=== PATIENT | female | born 1950 | race Caucasian/White ===

== ENCOUNTER 2018-03-06 07:24 | Emergency (ER) | payer OTHER ==
[2018-03-06 08:24] LABS: Absolute Lymphocytes (CBC) 2.9 K/uL (0.7-4.9); Absolute Monocytes 0.7 K/uL (0.1-1.3); Absolute Neutrophil 5.6 K/uL (1.8-8.0); Basophils % 0.2 % (0-1.3); Eosinophils % 1.1 % (0-4.4); Hematocrit 36.8 % (36.0-45.0); Lymphocytes % 31.1 % (15.3-44.8); MCH 31.4 pg (27.0-35.0); MCV 92.9 fL (80-100); MPV 8.7 fL (7.6-11.3); Monocytes % 7.3 % (3.3-12.3); RBC Red Blood Cell Count 3.96 M/uL (3.86-4.86)
[2018-03-06 08:32] LABS: Protime INR 1.03
[2018-03-06 08:51] LABS: ALT/SGPT 22 U/L (12-78); AST/SGOT 18 U/L (15-37); Albumin 3.2 g/dL (3.4-5.0); Alkaline Phosphatase 99 U/L (45-117); BUN Blood Urea Nitrogen 17 mg/dL (7-18); Bicarbonate 29 mmol/L (21-32); Bilirubin Direct < 0.1 mg/dL (0-0.2); Bilirubin Total 0.3 mg/dL (0.2-1.0); Glucose Level 193 mg/dL (74-106); Magnesium 2.1 mg/dL (1.8-2.4); NT PRO-BNP 18 pg/mL (<125); Potassium 3.8 mmol/L (3.5-5.1); Protein, Total 7.3 g/dL (6.4-8.2); Sodium Level 141 mmol/L (136-145)
--- NOTE | 2018-03-06 09:12 | RAD REPORT ---
EXAM DESCRIPTION: MRI - Brain Wo Cont - 03/06/2018 8:52 am CLINICAL HISTORY: Weakness;Dizziness Drowsiness, history of CVA COMPARISON: Head Brain Wo Cont dated 10/24/2016; MRA Head Wo Cont dated 08/05/2016; Brain Wo Cont date d 06/21/2016; Brain Wo Cont dated 11/26/2015; Ct Stroke Brain Wo Cont dated 11/26/2015 TECHNIQUE: Multi-sequence, multiplanar MR imaging of the brain was performed without contrast. FINDINGS: No intracranial hemorrhage, hydrocephalus or extra-axial fluid collections.Areas of T2/FLA IR hyperintensity in the subcortical periventricular white matter appears unchanged and likely relate d to chronic microvascular ischemia. No edema or shift of midline structures. No findings to suspect brain mass. DWI is negative for acute CVA. Midline structures are normally formed. Mastoid air cells and paranasal sinuses are clear. IMPRESSION: Negative for acute CVA or other acute intracranial abnormality.
--- NOTE | 2018-03-06 09:14 | RAD REPORT ---
EXAM DESCRIPTION: RAD - Chest Single View - 03/06/2018 9:04 am CLINICAL HISTORY: MALAISE Chest pain. COMPARISON: Chest Single View dated 11/26/2015; CHEST PA AND LAT 2 VIEW dated 10/19/2012; CHEST PA AND L AT 2 VIEW dated 10/11/2005 FINDINGS: Portable technique limits examination quality. The lungs are grossly clear. The heart is normal in size. No displaced fractures. IMPRESSION: No acute intrathoracic process suspected.
--- NOTE | 2018-03-06 09:21 | ER ---
Nurse's Notes [facility] Name: Laney Espitia Age: 68 yrs Sex: Female : 1950 Arrival Date: 03/06/2018 Time: 07:28 Bed 17 Private MD: Halina Estevez Diagnosis: Vertiginous syndromes in diseases classified elsewhere Presentation: 03/06 07:29 Presenting complaint: Patient states: maynor been dizzy for 4 days now, i cant walk right and i always stay in bed almost all day because i feel tired; denies nausea and vomiting, reports heart burn; denies diarrhea; hx of [place] and CVA; denies headache;. Transition of care: patient was not received from another setting of care. Onset of symptoms was March 02, 2018. Risk Assessment: Do you want to hurt yourself or someone else? Patient reports no desire to harm self or others. Initial Sepsis Screen: Does the patient meet any 2 criteria? No. Patient's initial sepsis screen is negative. Does the patient have a suspected source of infection? No. Patient's initial sepsis screen is negative. Care prior to arrival: None. 07:29 Method Of Arrival: Ambulatory 07:29 Acuity: PIPPA 3 hj Triage Assessment: 07:34 General: Appears in no apparent distress. uncomfortable, Behavior is calm, cooperative, hj appropriate for age. Pain: Denies pain. Historical: - Allergies: 07:33 No Known Allergies; hj - Home Meds: 07:33 Metoprolol Tartrate Oral [Active]; Plavix 75 mg Oral tab 1 tab once daily [Active]; hj Simvastatin Oral [Active]; Cymbalta oral oral [Active]; 07:34 thyroid med [Active]; - PMHx: 07:33 Myocardial infarction; 07:34 Hypothyroidism; - PSHx: 07:33 Heart stents; ; hj - Immunization history:: Adult Immunizations up to date. - Social history:: Smoking status: Patient/guardian denies using tobacco, Patient/guardian denies using alcohol. - Ebola Screening: : Patient negative for fever greater than or equal to 101.5 degrees Fahrenheit, and additional compatible Ebola Virus Disease symptoms Patient denies exposure to infectious person Patient denies travel to an Ebola-affected area in the 21 days before illness onset. Screenin:35 Abuse screen: Denies threats or abuse. Denies injuries from another. Nutritional hj screening: No deficits noted. Tuberculosis screening: No symptoms or risk factors identified. Fall Risk None identified. Assessment: 07:50 General: Appears uncomfortable, Behavior is calm, cooperative. Pain: Denies pain. aa5 Neuro: Level of Consciousness is awake, alert, obeys commands, Oriented to person, place, time, situation, [employer] are equal bilaterally Moves all extremities. Speech is normal, Facial symmetry appears normal, Pupils are PERRLA, Reports generalized weakness and dizziness x 4 days. Pt states "I've had some tingling to my arms when I sleep" . Cardiovascular: Denies chest pain, nausea, shortness of breath, Heart tones S1 S2 present Rhythm is sinus rhythm. Respiratory: Airway is patent Respiratory effort is even, unlabored, Respiratory pattern is regular, symmetrical, Breath sounds are clear bilaterally. GI: Abdomen is obese, Bowel sounds present X 4 quads. Abd is soft and non tender X 4 quads. Reports intermittent heart burn x 2-3 days ago. Pt currently denies heart burn Patient currently denies diarrhea, nausea, vomiting. : No signs and/or symptoms were reported regarding the genitourinary system. EENT: No signs and/or symptoms were reported regarding the EENT system. Derm: Skin is pink, warm \\T\\ dry. Musculoskeletal: Range of motion: intact in all extremities. 08:20 Reassessment: Pt taken to MRI via wheelchair . aa5 09:10 Reassessment: Patient and/or family updated on plan of care and expected duration. Pain aa5 level reassessed. Patient is alert, oriented x 3, equal unlabored respirations, skin warm/dry/pink. Patient denies pain at this time. Pt back from MRI. 09:40 Reassessment: Patient is alert, oriented x 3, equal unlabored respirations, skin aa5 warm/dry/pink. Vital Signs: 07:35 BP 125 / 52; Pulse 94; Resp 18; Temp 98.4(O); Pulse Ox 99% on R/A; Weight 88.45 kg; hj Height 5 ft. 1 in. (154.94 cm); Pain 0/10; 09:15 BP 147 / 83; Pulse 87; Resp 18 S; Pulse Ox 100% on R/A; Pain 0/10; aa5 07:35 Body Mass Index 36.84 (88.45 kg, 154.94 cm) hj NIH Stroke Scale Scores: 09:17 NIHSS Score: 0 ED Course: 07:28 Patient arrived in ED. mr 07:28 Halina Estevez MD is Private Physician. mr 07:32 Triage completed. hj 07:35 Arm band placed on left wrist. hj 07:35 Patient has correct armband on for positive identification. Placed in gown. Bed in low hj position. Call light in reach. Side rails up X 1. 07:38 Mikhail Thayer MD is Attending Physician. gs 07:40 Loulou Pham, RIA is Primary Nurse. aa5 08:00 quality assurance monitor on. Pulse ox on. NIBP on. aa5 08:00 Initial lab(s) drawn, by me, sent to lab. Inserted saline lock: 20 gauge in left aa5 antecubital area, using aseptic technique. Blood collected. 08:35 Patient moved to MRI via wheelchair. kw1 08:41 Radiology exam delayed due to pt is in MRI. mh1 08:41 EKG done, by instrumentation tech. reviewed by Mikhail Thayer MD. at1 08:42 MRI - Brain Wo Cont In Process Unspecified. EDMS 08:59 Patient moved to radiology via wheelchair. mh1 09:02 X-ray completed. Patient tolerated procedure well. Patient moved back from radiology. mh1 09:02 XRAY Chest (1 view) In Process Unspecified. EDMS 09:20 Jules Alfonso MD is Referral Physician. gs 09:40 No provider procedures requiring assistance completed. IV discontinued, intact, aa5 bleeding controlled, No redness/swelling at site. Pressure dressing applied. Administered Medications: No medications were administered Outcome: 09:20 Discharge ordered by . gs 09:40 Discharged to home ambulatory. aa5 09:40 Condition: stable 09:40 Discharge instructions given to patient, Instructed on discharge instructions, follow up and referral plans. medication usage, Demonstrated understanding of instructions, follow-up care, medications, Prescriptions given X 1. 09:41 Patient left the ED. aa5 NIH Stroke Scale - NIH Stroke Score Date: 03/06/2018 Time: :17 Total Score = 0 1a. Level of Consciousness (LOC) - 0(Alert) 1b. Level of Consciousness (LOC) (Year \\T\\ Age) - 0(Both) 1c. LOC Commands (Open \\T\\ Closes Eyes/Concession Worker) - 0(Both) 2. Best Gaze (Lateral Gaze Paresis) - 0(Normal) 3. Visual Field Loss - 0(No visual loss) 4. Facial Palsy - 0(Normal) 5a. Left Arm: Motor (10-second hold) - 0(No drift) 5b. Right Arm: Motor (10-second hold) - 0(No drift) 6a. Left Leg: Motor (5-second hold - always test supine) - 0(No drift) 6b. Right Leg: Motor (5-second hold - always test supine) - 0(No drift) 7. Limb Ataxia (finger/nose \\T\\ heel/ricketts - test with eyes open) - 0(Absent) 8. Sensory Loss (pinprick arms/legs/face) - 0(Normal) 9. Best Language: Aphasia (description/naming/reading) - 0(No aphasia) 10. Dysarthria (speech clarity - read or repeat words) - 0(Normal) 11. Extinction and Inattention (visual/tactile/auditory/spatial/personal) - 0(No abnormality) Initials: Signatures: Dispatcher [employer] [facility] PeñaAry john mr UnderwoodElizabeth mh1 Loulou Pham, RN RN aa5 Tianna yancey, package drier EKG Tat1 Gareth Shields RN RN hj Starr, Gregory, MD MD gs Wilhelm, Kimberly kw1 Corrections: (The following items were deleted from the chart) 07:37 07:29 Presenting complaint: Patient states: maynor been dizzy for 3 days now, i hj cant walk right and i always stay in bed almost all day because i fell tired; denies nausea and vomiting, reports heart burn; denies diarrhea; hx of [place] and CVA; denies headache; 07:37 07:35 Pulse 94bpm; Resp 18bpm; Pulse Ox 99% RA; Temp 98.4F Oral; 88.45 kg; hj Height 5 ft. 1 in.; BMI: 36.8; Pain 0/10; hj
--- NOTE | 2018-03-06 09:21 | EDPHYS ---
Physician Documentation [facility] Name: Laney Espitia Age: 68 yrs Sex: Female : 1950 Arrival Date: 03/06/2018 Time: 07:28 Bed 17 Private MD: Halina Estevez ED Physician Mikhial Thayer HPI: 03/06 09:17 This 68 yrs old Female presents to ER via Ambulatory with complaints of gs Dizziness, Weakness. 09:17 The patient presents with dizziness, feeling off balance, a sense of confusion. Onset: gs The symptoms/episode began/occurred 3 day(s) ago. Context: occurred at home. Modifying factors: The symptoms are alleviated by nothing, the symptoms are aggravated by movement of head, standing up. Associated signs and symptoms: Pertinent positives: Pertinent negatives: abdominal pain, chest pain, shortness of breath. Severity of symptoms: At their worst the symptoms were moderate in the emergency department the symptoms are unchanged. The patient has experienced similar episodes in the past, a few times. Historical: - Allergies: 07:33 No Known Allergies; hj - Home Meds: 07:33 Metoprolol Tartrate Oral [Active]; Plavix 75 mg Oral tab 1 tab once daily [Active]; hj Simvastatin Oral [Active]; Cymbalta oral oral [Active]; 07:34 thyroid med [Active]; hj - PMHx: 07:33 Myocardial infarction; hj 07:34 Hypothyroidism; hj - PSHx: 07:33 Heart stents; ; hj - Immunization history:: Adult Immunizations up to date. - Social history:: Smoking status: Patient/guardian denies using tobacco, Patient/guardian denies using alcohol. - Ebola Screening: : Patient negative for fever greater than or equal to 101.5 degrees Fahrenheit, and additional compatible Ebola Virus Disease symptoms Patient denies exposure to infectious person Patient denies travel to an Ebola-affected area in the 21 days before illness onset. ROS: 09:17 All other systems are negative. gs Exam: 09:17 Head/Face: Normocephalic, atraumatic. Eyes: Pupils equal round and reactive to light, gs extra-ocular motions intact. Lids and lashes normal. Conjunctiva and sclera are non-icteric and not injected. Cornea within normal limits. Periorbital areas with no swelling, redness, or edema. ENT: Nares patent. No nasal discharge, no septal abnormalities noted. Tympanic membranes are normal and external auditory canals are clear. Oropharynx with no redness, swelling, or masses, exudates, or evidence of obstruction, uvula midline. Mucous membranes moist. Neck: Trachea midline, no thyromegaly or masses palpated, and no cervical lymphadenopathy. Supple, full range of motion without nuchal rigidity, or vertebral point tenderness. No Meningismus. Chest/axilla: Normal chest wall appearance and motion. Nontender with no deformity. No lesions are appreciated. Cardiovascular: Regular rate and rhythm with a normal S1 and S2. No gallops, murmurs, or rubs. Normal PMI, no JVD. No pulse deficits. Respiratory: Lungs have equal breath sounds bilaterally, clear to auscultation and percussion. No rales, rhonchi or wheezes noted. No increased work of breathing, no retractions or nasal flaring. Abdomen/GI: Soft, non-tender, with normal bowel sounds. No distension or tympany. No guarding or rebound. No evidence of tenderness throughout. Back: No spinal tenderness. No costovertebral tenderness. Full range of motion. Skin: Warm, dry with normal turgor. Normal color with no rashes, no lesions, and no evidence of cellulitis. MS/ Extremity: Pulses equal, no cyanosis. Neurovascular intact. Full, normal range of motion. 09:17 Constitutional: The patient appears alert, awake. 09:17 Neuro: Orientation: is normal, Mentation: is normal, Memory: is normal, Cranial nerves: CN II- XII are normal as tested, Cerebellar function: normal finger to nose testing, little slow but do deviation, Motor: moves all fours, strength is normal, Sensation: is normal. 09:31 ECG was reviewed by the Attending Physician. Vital Signs: 07:35 BP 125 / 52; Pulse 94; Resp 18; Temp 98.4(O); Pulse Ox 99% on R/A; Weight 88.45 kg; hj Height 5 ft. 1 in. (154.94 cm); Pain 0/10; 09:15 BP 147 / 83; Pulse 87; Resp 18 S; Pulse Ox 100% on R/A; Pain 0/10; aa5 07:35 Body Mass Index 36.84 (88.45 kg, 154.94 cm) hj NIH Stroke Scale Scores: 09:17 NIHSS Score: 0 gs MDM: 07:51 Patient medically screened. 09:17 Differential diagnosis: CVA, TIA, vertigo. Data reviewed: vital signs, nurses notes. Response to treatment: the patient's symptoms have mildly improved after treatment, and as a result, I will discharge patient. 03/06 07:53 Order name: Basic Metabolic Panel; Complete Time: 09:13 03/06 07:53 Order name: CBC with Diff; Complete Time: 09:13 03/06 07:53 Order name: LFT's; Complete Time: 09:13 03/06 07:53 Order name: Magnesium; Complete Time: 09:13 03/06 07:53 Order name: NT PRO-BNP; Complete Time: 09:13 03/06 07:53 Order name: PT-INR; Complete Time: 09:13 03/06 07:53 Order name: Troponin (emerg Dept Use Only); Complete Time: 09: 03/06 07:53 Order name: XRAY Chest (1 view); Complete Time: 09:16 03/06 07:53 Order name: EKG; Complete Time: 07:53 03/06 07:53 Order name: Cardiac monitoring; Complete Time: 08:08 03/06 07:53 Order name: EKG - Nurse/Tech; Complete Time: 08:08 03/06 07:53 Order name: IV Saline Lock; Complete Time: 08:08 03/06 07:53 Order name: Labs collected and sent; Complete Time: 08:08 03/06 07:53 Order name: MRI - Brain Wo Cont; Complete Time: 09:16 03/06 07:53 Order name: O2 Per Protocol; Complete Time: 08:08 03/06 07:53 Order name: O2 Sat Monitoring; Complete Time: 08:08 EC:31 Rate is 94 beats/min. Rhythm is regular. MD interval is normal. QRS interval is normal. gs Q waves are Old. Clinical impression: Abnormal EKG without significant change. Interpreted by me. Administered Medications: No medications were administered Disposition: 03/06/18 09:20 Discharged to Home. Impression: Vertiginous syndromes in diseases classified elsewhere. - Condition is Stable. - Discharge Instructions: Benign Positional Vertigo. - Prescriptions for Valium 5 mg Oral Tablet - take 1 tablet by ORAL route every 12 hours As needed; 10 tablet. - Medication Reconciliation Form, Thank You Letter, Antibiotic Education, Prescription Opioid Use form. - Follow up: Jules Alfonso MD; When: 2 - 3 days; Reason: Re-evaluation by your physician. NIH Stroke Scale - NIH Stroke Score Date: 03/06/2018 Time: 09:17 Total Score = 0 1a. Level of Consciousness (LOC) - 0(Alert) 1b. Level of Consciousness (LOC) (Year \T\ Age) - 0(Both) 1c. LOC Commands (Open \T\ Closes Eyes/Barge Engineer) - 0(Both) 2. Best Gaze (Lateral Gaze Paresis) - 0(Normal) 3. Visual Field Loss - 0(No visual loss) 4. Facial Palsy - 0(Normal) 5a. Left Arm: Motor (10-second hold) - 0(No drift) 5b. Right Arm: Motor (10-second hold) - 0(No drift) 6a. Left Leg: Motor (5-second hold - always test supine) - 0(No drift) 6b. Right Leg: Motor (5-second hold - always test supine) - 0(No drift) 7. Limb Ataxia (finger/nose \T\ heel/ricketts - test with eyes open) - 0(Absent) 8. Sensory Loss (pinprick arms/legs/face) - 0(Normal) 9. Best Language: Aphasia (description/naming/reading) - 0(No aphasia) 10. Dysarthria (speech clarity - read or repeat words) - 0(Normal) 11. Extinction and Inattention (visual/tactile/auditory/spatial/personal) - 0(No abnormality) Initials: Signatures: Dispatcher [employer] EDMS Loulou Pham RN RN aa5 Gareth Shields RN RN hj Starr, Gregory, MD MD gs Corrections: (The following items were deleted from the chart) 09:40 07:53 Urine Dipstick-Ancillary ordered. aa5 09:41 09:20 03/06/2018 09:20 Discharged to Home. Impression: Vertiginous syndromes in aa5 diseases classified elsewhere. Condition is Stable. Forms are Medication Reconciliation Form, Thank You Letter, Antibiotic Education, Prescription Opioid Use. Follow up: Jules Alfonso; When: 2 - 3 days; Reason: Re-evaluation by your physician. gs
[2018-03-06 09:49] VITALS: TEMP 98.4
[2018-03-06 09:50] VITALS: BP 147/83; O2SAT 100
--- NOTE | 2018-03-06 14:52 | EKG ---
Test Date: 2018-03-06 Test Time: 08:04:37 Reflesher: TISHA MEASUREMENT RESULTS: Intervals: Rate: 94 MO: 166 QRSD: 74 QT: 372 QTc: 465 [place]: P: 67 MO: 166 QRS: 68 T: 77 INTERPRETIVE STATEMENTS: Normal sinus rhythm Low voltage QRS Septal infarct, age undetermined Abnormal ECG Compared to ECG 11/27/2015 07:05:21 Myocardial infarct finding now present Electronically Signed On 03-06-18 14:50:21 CDT by Johann Altamirano
== END 2018-03-06 09:41 | disposition home or self-care (01) ==
LOC: ER 07:24
DX: H82.9 Vertiginous syndromes in diseases classified elsewhere, unspecified ear (principal); E03.9 Hypothyroidism, unspecified; I25.2 Old myocardial infarction; Z95.818 Presence of other cardiac implants and grafts; Z79.01 Long term (current) use of anticoagulants
CPT/HCPCS: 36415; 70551; 71045; 80048; 80076; 83735; 83880; 84484; 85025; 85610; 93005; 99285

== ENCOUNTER 2018-03-20 09:56 | Emergency (ER) | payer OTHER ==
--- NOTE | 2018-03-20 10:32 | EDPHYS ---
Physician Documentation [facility] Name: Laney Espitia Age: 68 yrs Sex: Female : 1950 Arrival Date: 03/20/2018 Time: 09:58 Bed 13 Private MD: ED Physician Tarik Mayer HPI: 03/20 10:27 This 68 yrs old Female presents to ER via Wheelchair with complaints of Fall aundrea Injury. 10:27 Details of fall: The patient fell from an upright position, while walking. Onset: The aundrea symptoms/episode began/occurred just prior to arrival. Associated injuries: The patient sustained right arm, right leg and left leg. Severity of symptoms: At their worst the symptoms were mild, in the emergency department the symptoms are unchanged. The patient has not experienced similar symptoms in the past. Historical: - Allergies: 10:06 NKA; iw - Home Meds: 10:06 Cymbalta Oral [Active]; Metoprolol Tartrate Oral [Active]; Plavix 75 mg Oral tab 1 tab iw once daily [Active]; Simvastatin Oral [Active]; Thyroid Med [Active]; - PMHx: 10:06 Hypothyroidism; Myocardial infarction; High Cholesterol; Hypertension; Depression; iw - PSHx: 10:06 Heart stents; ; iw - Immunization history:: Adult Immunizations Last tetanus immunization: > 10 years ago. - Social history:: Smoking status: Patient/guardian denies using tobacco. - Ebola Screening: : Patient negative for fever greater than or equal to 101.5 degrees Fahrenheit, and additional compatible Ebola Virus Disease symptoms Patient denies exposure to infectious person Patient denies travel to an Ebola-affected area in the 21 days before illness onset No symptoms or risks identified at this time. - Family history:: not pertinent. ROS: 10:27 Constitutional: Negative for fever, chills, and weight loss, Eyes: Negative for injury, aundrea pain, redness, and discharge, ENT: Negative for injury, pain, and discharge, Neck: Negative for injury, pain, and swelling, Cardiovascular: Negative for chest pain, palpitations, and edema, Respiratory: Negative for shortness of breath, cough, wheezing, and pleuritic chest pain, Abdomen/GI: Negative for abdominal pain, nausea, vomiting, diarrhea, and constipation, Back: Negative for injury and pain, : Negative for injury, bleeding, discharge, and swelling, Skin: Negative for injury, rash, and discoloration, Neuro: Negative for headache, weakness, numbness, tingling, and seizure, Psych: Negative for depression, anxiety, suicide ideation, homicidal ideation, and hallucinations, Allergy/Immunology: Negative for hives, rash, and allergies, Endocrine: Negative for neck swelling, polydipsia, polyuria, polyphagia, and marked weight changes. 10:27 MS/extremity: Positive for injury or acute deformity, decreased range of motion, pain, of the right arm, right leg and left leg. Exam: 10:27 Constitutional: This is a well developed, well nourished patient who is awake, alert, aundrea and in no acute distress. Head/Face: Normocephalic, atraumatic. Eyes: Pupils equal round and reactive to light, extra-ocular motions intact. Lids and lashes normal. Conjunctiva and sclera are non-icteric and not injected. Cornea within normal limits. Periorbital areas with no swelling, redness, or edema. ENT: Nares patent. No nasal discharge, no septal abnormalities noted. Tympanic membranes are normal and external auditory canals are clear. Oropharynx with no redness, swelling, or masses, exudates, or evidence of obstruction, uvula midline. Mucous membranes moist. Neck: Trachea midline, no thyromegaly or masses palpated, and no cervical lymphadenopathy. Supple, full range of motion without nuchal rigidity, or vertebral point tenderness. No Meningismus. Chest/axilla: Normal chest wall appearance and motion. Nontender with no deformity. No lesions are appreciated. Cardiovascular: Regular rate and rhythm with a normal S1 and S2. No gallops, murmurs, or rubs. Normal PMI, no JVD. No pulse deficits. Respiratory: Lungs have equal breath sounds bilaterally, clear to auscultation and percussion. No rales, rhonchi or wheezes noted. No increased work of breathing, no retractions or nasal flaring. Abdomen/GI: Soft, non-tender, with normal bowel sounds. No distension or tympany. No guarding or rebound. No evidence of tenderness throughout. Back: No spinal tenderness. No costovertebral tenderness. Full range of motion. Female : Normal external genitalia. Skin: Warm, dry with normal turgor. Normal color with no rashes, no lesions, and no evidence of cellulitis. Neuro: Awake and alert, GCS 15, oriented to person, place, time, and situation. Cranial nerves II-XII grossly intact. Motor strength 5/5 in all extremities. Sensory grossly intact. Cerebellar exam normal. Normal gait. Psych: Awake, alert, with orientation to person, place and time. Behavior, mood, and affect are within normal limits. 10:27 Musculoskeletal/extremity: ROM: full active range of motion, full passive range of motion, in all extremities, Circulation is intact in all extremities. Sensation intact. Compartment Syndrome exam of affected extremity: is normal. DVT Exam: negative Homans' sign noted on exam, no appreciated bluish discoloration, no erythema, no increased warmth, pain, swelling, tenderness. Vital Signs: 10:04 BP 187 / 64; Pulse 91; Resp 16; Pulse Ox 99% on R/A; Height 5 ft. 0 in. (152.40 cm); iw Pain 2/10; MDM: 10:05 Patient medically screened. [facility] 10:29 Data reviewed: vital signs, nurses notes, radiologic studies. 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 Lot #: [id number]. } Route: IM; Site: left deltoid; 10:39 Follow up: Response: No adverse reaction Disposition: 03/20/18 10:32 Discharged to Home. Impression: Fall due to bumping against object, Pain in right knee, Pain in left knee, Abrasion of right elbow. - Condition is Stable. - Discharge Instructions: Abrasion, Musculoskeletal Pain, Knee Pain, Abrasion, [id number], Knee Pain, [id number], Joint Pain, [id number]. - Prescriptions for Tylenol- Codeine #3 300-30 mg Oral Tablet - take 2 tablets by ORAL route every 6 hours As needed; 26 tablet. - Medication Reconciliation Form, Thank You Letter, Antibiotic Education, Prescription Opioid Use form. - Follow up: Private Physician; When: 2 - 3 days; Reason: Recheck today's complaints, Continuance of care, Re-evaluation by your physician. Follow up: Choco Sena MD; When: 2 - 3 days; Reason: Recheck today's complaints, Re-evaluation by your physician. - Problem is new. - Symptoms have improved. Signatures: Dispatcher [employer] EDMS Tarik Mayer MD MD cha Williams, Irene, RN RN Gareth Shields RN RN Corrections: (The following items were deleted from the chart) 11:34 10:32 03/20/2018 10:32 Discharged to Home. Impression: Fall due to bumping against hj object; Pain in right knee; Pain in left knee; Abrasion of right elbow. Condition is Stable. Forms are Medication Reconciliation Form, Thank You Letter, Antibiotic Education, Prescription Opioid Use. Follow up: Private Physician; When: 2 - 3 days; Reason: Recheck today's complaints, Continuance of care, Re-evaluation by your physician. Follow up: Choco Sena; When: 2 - 3 days; Reason: Recheck today's complaints, Re-evaluation by your physician. Problem is new. Symptoms have improved. aundrea
--- NOTE | 2018-03-20 10:32 | ER ---
Nurse's Notes [facility] Name: Laney Espitia Age: 68 yrs Sex: Female : 1950 Arrival Date: 03/20/2018 Time: 09:58 Bed 13 Private MD: Diagnosis: Fall due to bumping against object;Pain in right knee;Pain in left knee;Abrasion of right elbow Presentation: 03/20 10:00 Presenting complaint: Patient states: pt tripped on curb outside of front ER walkway, iw pt fell forward, did not hit head, abrasion to right elbow, c/o mild payne to jorge knees, no other injuries noted. Care prior to arrival: None. Mechanism of Injury: Fall from standing position. Trauma event details: Injury occurred in the [facility]. 10:00 Acuity: PIPPA 4 iw 10:00 Method Of Arrival: Wheelchair iw 10:08 Transition of care: patient was not received from another setting of care. Onset of hj symptoms was March 20, 2018. Risk Assessment: Do you want to hurt yourself or someone else? Patient reports no desire to harm self or others. Initial Sepsis Screen: Does the patient meet any 2 criteria? No. Patient's initial sepsis screen is negative. Does the patient have a suspected source of infection? No. Patient's initial sepsis screen is negative. Triage Assessment: 10:08 General: Appears in no apparent distress. uncomfortable, Behavior is calm, cooperative, hj appropriate for age. Pain: Complains of pain in elbow and bilateral knees. Trauma Activation: Not Applicable Physician: ED Physician; Name: ; Notified At: ; Arrived At: Physician: General Surgeon; Name: ; Notified At: ; Arrived At: Physician: Radiology; Name: ; Notified At: ; Arrived At: Physician: Respiratory; Name: ; Notified At: ; Arrived At: Physician: Lab; Name: ; Notified At: ; Arrived At: Historical: - Allergies: 10:06 NKA; iw - Home Meds: 10:06 Cymbalta Oral [Active]; Metoprolol Tartrate Oral [Active]; Plavix 75 mg Oral tab 1 tab iw once daily [Active]; Simvastatin Oral [Active]; Thyroid Med [Active]; - PMHx: 10:06 Hypothyroidism; Myocardial infarction; High Cholesterol; Hypertension; Depression; iw - PSHx: 10:06 Heart stents; ; iw - Immunization history:: Adult Immunizations Last tetanus immunization: > 10 years ago. - Social history:: Smoking status: Patient/guardian denies using tobacco. - Ebola Screening: : Patient negative for fever greater than or equal to 101.5 degrees Fahrenheit, and additional compatible Ebola Virus Disease symptoms Patient denies exposure to infectious person Patient denies travel to an Ebola-affected area in the 21 days before illness onset No symptoms or risks identified at this time. - Family history:: not pertinent. Screenin:08 Abuse screen: Denies threats or abuse. Denies injuries from another. Nutritional hj screening: No deficits noted. Tuberculosis screening: No symptoms or risk factors identified. Fall Risk Fall in past 12 months (25 points). Assessment: 10:11 General: Appears in no apparent distress. uncomfortable, Behavior is calm, cooperative, jb4 appropriate for age. Pain: Complains of pain in right elbow, right knee and left knee Pain does not radiate. Pain currently is 3 out of 10 on a pain scale. at worst was 3 out of 10 on a pain scale. Pain began 30 min ago. Is continuous. Neuro: Level of Consciousness is awake, alert, obeys commands, Oriented to person, place, time, situation, Computer Systems Design Analyst are equal bilaterally Moves all extremities. Cardiovascular: Heart tones S1 S3 present Patient's skin is warm and dry. Respiratory: Airway is patent Respiratory effort is even, unlabored, Respiratory pattern is regular, symmetrical, Breath sounds are clear bilaterally. GI: Bowel sounds present X 4 quads. Abd is soft and non tender X 4 quads. : No signs and/or symptoms were reported regarding the genitourinary system. EENT: No signs and/or symptoms were reported regarding the EENT system. Derm: Skin Abrasions to the right elbow, left and right knee. Skin is dry, Skin is normal, Skin temperature is warm. Musculoskeletal: Circulation, motion, and sensation intact. Range of motion: intact in all extremities. Injury Description: Abrasion sustained to right elbow, right knee and left knee. 10:50 Reassessment: Patient and/or family updated on plan of care and expected duration. Pain jb4 level reassessed. Patient is alert, oriented x 3, equal unlabored respirations, skin warm/dry/pink. waiting for X-ray before discharge. Patient states feeling better. Vital Signs: 10:04 BP 187 / 64; Pulse 91; Resp 16; Pulse Ox 99% on R/A; Height 5 ft. 0 in. (152.40 cm); iw Pain 2/10; ED Course: 09:58 Patient arrived in ED. tw2 10:03 Triage completed. iw 10:04 Arm band placed on. iw 10:05 Tarik Mayer MD is Attending Physician. aundrea 10:07 Gareth Shields, RN is Primary Nurse. hj 10:09 Patient has correct armband on for positive identification. Bed in low position. Call hj light in reach. Side rails up X 1. 10:31 Choco Sena MD is Referral Physician. aundrea 10:37 EKG done, by medical instrument technician. reviewed by Tarik Mayer MD. at1 11:33 No provider procedures requiring assistance completed. Patient did not have IV access hj during this emergency room visit. 11:38 X-ray completed. Portable x-ray completed in exam room. Patient tolerated procedure jb2 well. 11:39 Knee Left 3 View XRAY In Process Unspecified. 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 Lot #: [id number]. } Route: IM; Site: left deltoid; 10:39 Follow up: Response: No adverse reaction hj Outcome: 10:32 Discharge ordered by . aundrea 11:33 Discharged to home ambulatory. hj 11:33 Condition: stable 11:33 Discharge instructions given to patient, Instructed on discharge instructions, follow up and referral plans. Demonstrated understanding of instructions, follow-up care. 11:34 Patient left the ED. hj Signatures: Dispatcher [employer] EDMS Tarik Mayer MD MD cha Buechter, Jesse jb2 Sol Jha, Tianna Yoder RN, surface grinder EKG Tat1 Gareth Shields, RN Myriam Campbell RN RN tw2 Michael Ugalde RN RN jb4 Corrections: (The following items were deleted from the chart) 10:04 10:00 Presenting complaint: Patient states: tripped on curb outside of front ER iw walkway, pt fell forward, did not hit head, abrasion to right elbow, c/o mild payne to jorge knees, no other injuries noted iw
[2018-03-20] MEDS ORDERED: TETANUS & DIPHTHERIA TOX,ADULT 0.5 ML VIAL ONE (10:37)
[2018-03-20 11:37] VITALS: BP 187/64; O2SAT 99
--- NOTE | 2018-03-20 12:16 | RAD REPORT ---
EXAM DESCRIPTION: RAD - Knee Left 3 View - 03/20/2018 11:39 am CLINICAL HISTORY: PAIN COMPARISON: No comparisons FINDINGS: No fracture or dislocation is appreciated. Soft tissue swelling is seen anterior to the pa tella.
--- NOTE | 2018-03-20 14:47 | EKG ---
Test Date: 2018-03-20 Test Time: 10:26:41 Lead Accountant: TISHA MEASUREMENT RESULTS: Intervals: Rate: 86 TN: 176 QRSD: 82 QT: 386 QTc: 461 [place]: P: 65 TN: 176 QRS: 60 T: 71 INTERPRETIVE STATEMENTS: Normal sinus rhythm Low voltage QRS Septal infarct, age undetermined Abnormal ECG Compared to ECG 03/06/2018 08:04:37 No significant changes Electronically Signed On 03-20-18 14:45:07 CDT by Johann Altamirano
== END 2018-03-20 11:34 | disposition home or self-care (01) ==
LOC: ER 09:56
DX: S50.311A Abrasion of right elbow, initial encounter (principal); M25.562 Pain in left knee; M25.561 Pain in right knee; I10 Essential (primary) hypertension; E03.9 Hypothyroidism, unspecified; W18.00XA Striking against unspecified object with subsequent fall, initial encounter; Y93.01 Activity, walking, marching and hiking; Y92.9 Unspecified place or not applicable; Y99.9 Unspecified external cause status; Z23 Encounter for immunization
CPT/HCPCS: 90714; 93005; 99283

== ENCOUNTER 2020-06-17 10:26 | Emergency (ER) | payer OTHER ==
--- NOTE | 2020-06-17 12:18 | ER ---
Nurse's Notes [facility] Name: Laney Espitia Age: 70 yrs Sex: Female : 1950 Arrival Date: 06/17/2020 Time: : Bed 18 Private MD: Diagnosis: Urinary tract infection, site not specified;Acute upper respiratory infection, unspecified Presentation: 06/17 10:41 Chief complaint: Patient states: Fatigue, tiredness, cough, sore throat, fatigue, ll1 tiredness, no appetite for 1 week. Low grade fever one day. + diarrhea. Coronavirus screen: Client denies travel out of the [place] in the last 14 days. cough unrelated to allergies, diarrhea, fatigue, fever, sore throat, Client presents with at least one sign or symptom that may indicate coronavirus-19. Standard/surgical mask placed on the client. Ebola Screen: Patient denies travel to an Ebola-affected area in the 21 days before illness onset. Initial Sepsis Screen: Does the patient meet any 2 criteria? HR > 90 bpm. No. Patient's initial sepsis screen is negative. Does the patient have a suspected source of infection? Yes: Productive cough/pneumonia. Risk Assessment: Do you want to hurt yourself or someone else? Patient reports no desire to harm self or others. Onset of symptoms was June 10, 2020. 10:41 Method Of Arrival: Ambulatory ll1 10:41 Acuity: PIPPA 3 ll1 Historical: - Allergies: 10:41 NKA; ll1 - PMHx: 10:41 Depression; High Cholesterol; Hypertension; Hypothyroidism; Myocardial infarction; ll1 stroke; - PSHx: 10:41 Heart stents; ; ll1 - Immunization history:: Flu vaccine is not up to date. - Social history:: Smoking status: Patient denies any tobacco usage or history of. Screenin:40 Abuse screen: Denies threats or abuse. Denies injuries from another. Nutritional hb screening: No deficits noted. Tuberculosis screening: No symptoms or risk factors identified. Fall Risk None identified. Assessment: 10:45 General: Appears in no apparent distress. Behavior is calm, cooperative. Pain: Pain hb currently is 2 out of 10 on a pain scale. Neuro: Level of Consciousness is awake, alert, obeys commands, Oriented to person, place, time, situation. Cardiovascular: Capillary refill < 3 seconds Patient's skin is warm and dry. Respiratory: Respiratory effort is even, unlabored, Respiratory pattern is regular, symmetrical. GI: No signs and/or symptoms were reported involving the gastrointestinal system. : No signs and/or symptoms were reported regarding the genitourinary system. EENT: Reports sore throat. Derm: Skin is pink, warm \T\ dry. Musculoskeletal: No signs and/or symptoms reported regarding the musculoskeletal system. 11:40 Reassessment: Patient appears in no apparent distress at this time. Patient and/or hb family updated on plan of care and expected duration. Pain level reassessed. Patient is alert, oriented x 3, equal unlabored respirations, skin warm/dry/pink. Vital Signs: 10:41 BP 163 / 68; Pulse 108; Resp 18; Temp 98.8; Pulse Ox 100% ; Weight 108.86 kg; Pain 0/10;ll1 11:27 BP 140 / 72; Pulse 93; Resp 17; Pulse Ox 96% on R/A; hb ED Course: 10:28 Patient arrived in ED. ds1 10:36 Michelle Maddox FNP-C [facility]. kb 10:36 Lionel Wilson MD is Attending Physician. kb 10:40 Arm band placed on Patient placed in an exam room, on a stretcher. ll1 10:42 Sumaya Daniels, RN is Primary Nurse. hb 10:42 Triage completed. ll1 10:55 Strep Sent. dh3 10:55 Flu Sent. dh3 11:40 Patient has correct armband on for positive identification. Bed in low position. Call hb light in reach. 11:51 Urine collected: clean catch specimen, cloudy. dh3 12:42 Pt swabbed for COVID-19. jp3 12:46 No provider procedures requiring assistance completed. Patient did not have IV access hb during this emergency room visit. Administered Medications: 12:33 Drug: Augmentin 875 mg Route: PO; hb 12:46 Follow up: Response: No adverse reaction hb Outcome: 12:18 Discharge ordered by MD. kb 12:46 Discharged to home ambulatory. hb 12:46 Condition: stable 12:46 Discharge instructions given to patient, Instructed on discharge instructions, follow up and referral plans. medication usage, Demonstrated understanding of instructions, follow-up care, medications, Prescriptions given X 1. 12:47 Patient left the ED. Addendum: 06/18/2020 14:25 Addendum: COVID-19 Result: Negative result given to RN to notify pt. Attempted to h b contact pt regarding negative COVID-19 swab results. Left voice mail. Signatures: Michelle Maddox, DOROTHEA JEWELLP-Sobia Menjivar ds1 Sumaya Daniels RN RN Kourtney Magaña 3 Eder Mabry 3 Nata Corcoran RN RN ll1
--- NOTE | 2020-06-17 12:18 | EDPHYS ---
Physician Documentation [facility] Name: Laney Espitia Age: 70 yrs Sex: Female : 1950 Arrival Date: 06/17/2020 Time: : Bed 18 Private MD: ED Physician Lionel Wilson HPI: 06/17 12:46 This 70 yrs old Female presents to ER via Ambulatory with complaints of Sore kb Throat. 12:46 The patient or guardian reports cough, that is intermittent, described as moderate, kb with no sputum, flu symptoms, low-grade fever, myalgias. Onset: The symptoms/episode began/occurred last week. Severity of symptoms: At their worst the symptoms were moderate, in the emergency department the symptoms are unchanged. Modifying factors: The symptoms are alleviated by nothing, the symptoms are aggravated by nothing. Associated signs and symptoms: Pertinent positives: diarrhea, fever, rhinorrhea, sore throat, Pertinent negatives: chest pain, ear ache, nausea, vomiting. The patient has not experienced similar symptoms in the past. The patient has not recently seen a physician. Pt reports cough, malaise, fatigue, headache, body aches, sore throat, diarrhea for a week. States "I just came to get a COVID test because this has been lingering and I don't know how I'm supposed to feel if it was covid.". Historical: - Allergies: 10:41 NKA; ll1 - PMHx: 10:41 Depression; High Cholesterol; Hypertension; Hypothyroidism; Myocardial infarction; ll1 stroke; - PSHx: 10:41 Heart stents; ; ll1 - Immunization history:: Flu vaccine is not up to date. - Social history:: Smoking status: Patient denies any tobacco usage or history of. ROS: 12:45 Neck: Negative for injury, pain, and swelling, Cardiovascular: Negative for chest pain, kb palpitations, and edema, Back: Negative for injury and pain, MS/Extremity: Negative for injury and deformity, Skin: Negative for injury, rash, and discoloration. 12:45 Constitutional: Positive for body aches, fatigue, malaise. 12:45 ENT: Positive for rhinorrhea, sore throat. 12:45 Respiratory: Positive for cough, Negative for dyspnea on exertion, hemoptysis, orthopnea, pleurisy, shortness of breath, sputum production, wheezing. 12:45 Abdomen/GI: Positive for diarrhea, Negative for abdominal pain, nausea and vomiting. 12:45 Neuro: Positive for headache. Exam: 12:45 Constitutional: This is a well developed, well nourished patient who is awake, alert, kb and in no acute distress. Head/Face: Normocephalic, atraumatic. ENT: Nares patent. No nasal discharge, no septal abnormalities noted. Tympanic membranes are normal and external auditory canals are clear. Oropharynx with no redness, swelling, or masses, exudates, or evidence of obstruction, uvula midline. Mucous membranes moist. Neck: Trachea midline, no thyromegaly or masses palpated, and no cervical lymphadenopathy. Supple, full range of motion without nuchal rigidity, or vertebral point tenderness. No Meningismus. Chest/axilla: Normal chest wall appearance and motion. Nontender with no deformity. No lesions are appreciated. Cardiovascular: Regular rate and rhythm with a normal S1 and S2. No gallops, murmurs, or rubs. Normal PMI, no JVD. No pulse deficits. Respiratory: Lungs have equal breath sounds bilaterally, clear to auscultation and percussion. No rales, rhonchi or wheezes noted. No increased work of breathing, no retractions or nasal flaring. Abdomen/GI: Soft, non-tender, with normal bowel sounds. No distension or tympany. No guarding or rebound. No evidence of tenderness throughout. Skin: Warm, dry with normal turgor. Normal color with no rashes, no lesions, and no evidence of cellulitis. MS/ Extremity: Pulses equal, no cyanosis. Neurovascular intact. Full, normal range of motion. Neuro: Awake and alert, GCS 15, oriented to person, place, time, and situation. Cranial nerves II-XII grossly intact. Motor strength 5/5 in all extremities. Sensory grossly intact. Cerebellar exam normal. Normal gait. Vital Signs: 10:41 BP 163 / 68; Pulse 108; Resp 18; Temp 98.8; Pulse Ox 100% ; Weight 108.86 kg; Pain 0/10;ll1 11:27 BP 140 / 72; Pulse 93; Resp 17; Pulse Ox 96% on R/A; hb MDM: 10:37 Patient medically screened. kb 12:15 Data reviewed: vital signs, nurses notes. Data interpreted: Pulse oximetry: on room air kb is 96 %. Interpretation: normal. Counseling: I had a detailed discussion with the patient and/or guardian regarding: the historical points, exam findings, and any diagnostic results supporting the discharge/admit diagnosis, lab results, the need for outpatient follow up, a family practitioner, to return to the emergency department if symptoms worsen or persist or if there are any questions or concerns that arise at home. 06/17 10:46 Order name: Flu; Complete Time: 11:34 kb 06/17 10:46 Order name: Strep; Complete Time: 11:34 kb 06/17 11:32 Order name: Throat Culture EDWI 06/17 11:51 Order name: Urine Microscopic Only dh3 06/17 11:54 Order name: Urine Dipstick--Ancillary (enter results) bd 06/17 11:54 Order name: Urine Dipstick-Ancillary EDWI 06/17 11:35 Order name: Urine Dipstick-Ancillary (obtain specimen); Complete Time: 11:47 kb 06/17 12:17 Order name: COVID-19 kb Administered Medications: 12:33 Drug: Augmentin 875 mg Route: PO; 12:46 Follow up: Response: No adverse reaction Disposition: 15:35 Co-signature as Attending Physician, Lionel Wilson MD. ma2 Disposition: 06/17/20 12:18 Discharged to Home. Impression: Urinary tract infection, site not specified, Acute upper respiratory infection, unspecified. - Condition is Stable. - Discharge Instructions: Urinary Tract Infection, Adult, [id number], Upper Respiratory Infection, Adult, [id number], COVID-19. - Prescriptions for Augmentin 875- 125 mg Oral Tablet - take 1 tablet by ORAL route every 12 hours for 10 days; 20 tablet. - Medication Reconciliation Form, Thank You Letter, Antibiotic Education, Prescription Opioid Use form. - Follow up: Emergency Department; When: As needed; Reason: Worsening of condition. Follow up: Private Physician; When: 2 - 3 days; Reason: Recheck today's complaints, Continuance of care, Re-evaluation by your physician. Signatures: Dispatcher [employer] EDWI Michelle Maddox, YOSVANY-C YOSVANY-Sumaya Belle RN RN hb Lionel Wilson MD MD ma2 Nata Corcoran RN RN ll1 Corrections: (The following items were deleted from the chart) 12:47 12:18 06/17/2020 12:18 Discharged to Home. Impression: Urinary tract infection, site hb not specified; Acute upper respiratory infection, unspecified. Condition is Stable. Forms are Medication Reconciliation Form, Thank You Letter, Antibiotic Education, Prescription Opioid Use. Follow up: Emergency Department; When: As needed; Reason: Worsening of condition. Follow up: Private Physician; When: 2 - 3 days; Reason: Recheck today's complaints, Continuance of care, Re-evaluation by your physician. kb
[2020-06-17] MEDS ORDERED: AMOX/K CLAV 875 MG TAB ONE (12:39)
[2020-06-17 12:55] LABS: Urine Bacteria >50 /HPF (<20); Urine Culture Reflex Order NOT NEEDED; Urine RBC <5 /HPF (NONE SEEN)
[2020-06-17 12:55] LABS: Urine Blood 2+ (NEG); Urine Glucose NEGATIVE (NEG); Urine Protein NEGATIVE (NEG); Urine Specific Gravity >1.030 (1.005-1.030); Urine pH 5.5 (5.0-7.0)
[2020-06-17 13:07] VITALS: TEMP 98.8
[2020-06-17 13:09] VITALS: BP 140/72; O2SAT 96
== END 2020-06-17 12:47 | disposition home or self-care (01) ==
LOC: ER 10:26
DX: J06.9 Acute upper respiratory infection, unspecified (principal); Z20.828 Contact with and (suspected) exposure to other viral communicable diseases; N39.0 Urinary tract infection, site not specified; I10 Essential (primary) hypertension; Z95.818 Presence of other cardiac implants and grafts
CPT/HCPCS: 87070; 87081; 87804 ×2; 99283; U0002; 81003; 81015

== ENCOUNTER 2023-03-27 12:52 | Emergency (ER) | payer OTHER, MEDICARE ==
--- OUTSIDE RECORDS SUMMARY | 2023-03-27 12:56 | XMS REPORT | Clinical Summary ---
:1950 Author Organization [facility] MD [facility] Address [address] [place] [address] Care Team Providers Name Role Phone Verna Carpio MD Unavailable Isreal Vazquez MD Primary Care Provider Timmy Abraham MD Unavailable [phone] Johann Altamirano MD Unavailable [phone] Allergies No known active allergies Medications Medication Sig Dispensed Refills Start Date End Date Status levothyroxine 50 mcg Take by mouth 0 Active cap daily. enalapril (VASOTEC) 5 10 mg twice 0 Active mg tablet daily. DULoxetine (CYMBALTA) twice daily. 0 Active 60 mg capsule buPROPion (WELLBUTRIN) twice daily. 0 07/06/2020 Active 75 mg tablet clopidogrel (PLAVIX) 75 daily. 0 07/06/2020 Active mg tablet simvastatin (ZOCOR) 80 Take 80 mg by 0 Active mg tablet mouth at bedtime. metFORMIN (GLUCOPHAGE) Take 500 mg by 0 Active 500 mg tablet mouth 2 (two) times a day with meals. sulfamethoxazole-trimet Take 1 tablet by 14 tablet 0 1 Active hoprim (BACTRIM DS) 800 mouth twice mg-160 mg per daily. tabletIndications: Acute cystitis without hematuria, not otherwise specified oxyCODONE (Roxicodone) Take 1 tablet (5 5 tablet 0 05/25/2021 Active 5 mg immediate release mg) by mouth tabletIndications: every 4 (four) Complex cyst of right hours as needed ovary for moderate pain. acetaminophen (Tylenol Take 2 tablets 60 tablet 0 05/25/2021 Active Extra Strength) 500 mg (1,000 mg) by tabletIndications: mouth every 6 Complex cyst of right (six) hours. ovary Additional Information Patient not taking. Reason: No longer taking, Informant: Self, Reported on 09/14/2021 senna-docusate (SENOKOT-S) 8.6 Take 1 tablet by 60 tablet 0 Active mg-50 mg tabletIndications: mouth twice daily. Complex cyst of right ovary ibuprofen (ADVIL,MOTRIN) 800 mg Take 1 tablet (800 30 tablet 0 05/25/2021 Active tabletIndications: Complex cyst mg) by mouth every 8 of right ovary (eight) hours. ibuprofen (ADVIL,MOTRIN) 200 mg Take 200 mg by mouth 0 Active tablet every 8 (eight) hours as needed. diclofenac sodium (VOLTAREN) 50 as needed. 0 022 Active MG EC tablet estradiol (ESTRACE) 0.1 mg/g as needed. 0 08/19/2021 Active (0.01%) vaginal cream Active Problems Problem Noted Date Complex cyst of right ovary 05/11/2021 Overview: Added automatically from request for gayla garcia [id number] Hypertension 05/11/2021 Overview: Added automatically from request for gayla garcia [id number] Hyperlipidemia 05/11/2021 Overview: Added automatically from request for gayla garcia [id number] Myocardial infarction 05/11/2021 Overview: Added automatically from request for gayla garcia [id number] Anxiety 02/06/2018 Chronic depression 02/06/2018 Seasonal allergy 02/06/2018 Surgical History Surgery Date Site/Laterality Comments COLONOSCOPY 08/21/2014 - 08/20/2015 SECTION, CLASSIC 08/21/1984 - 08/20/1985 SECTION, CLASSIC 08/21/1987 - 08/20/1988 CORONARY ANGIOPLASTY WITH 10/20/2003 - by Dr. Langley in [place] STENT PLACEMENT 11/19/2003 CARDIAC CATHETERIZATION 10/19/2013 - 11/18/2013 NECK SURGERY 12/22/2015 R neck catheteri zation [place] LAPAROSCOPY W/RMVL 05/25/2021 Vagina /Bilateral Procedur e: LAPAROSCOPY ADNEXAL STRUCTURES WITH REMOVAL OF ADNEXAL STRUCTURES BILAT ERAL OOPHERECTOMY AND SALPINGECTOMY; S urgeon: Isreal Vazquez MD ; Location: MAIN O R; Service: [employer] - G YNECOLOGIC ONCOLOGY Medical History Medical History Date Comments Hypertension 2015 Myocardial infarction 10/2003 stint Personal history of stroke 11/26/2015 Hyperlipidemia 2015 Functional visual loss 2011 READING Tooth disorder 2014 INFECTION Dependence on continuous positive airway 2005 pressure ventilation History of recurrent urinary tract infection 1988 Urinary incontinence 2020 Menopause 1989 Depressive disorder Anxiety Herpes zoster 2020 back Basal cell carcinoma of skin 2019 R LEG 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 Sleep apnea Family History Medical History Relation Name Comments Breast cancer Maternal Aunt 1 RAYMOND SCHULTZ Lung cancer Maternal Aunt 2 NEVILLE LOPEZ Colon cancer Maternal Grandfather TYE DORAN Breast cancer Paternal Aunt BRAULIO SCHULTZ Relation Name Status Comments Maternal Aunt 1 RAYMOND SCHULTZ Maternal Aunt 2 NEVILLE LOPEZ Maternal Grandfather TYE DORAN Paternal Aunt BRAULIO SCHULTZ Social History Tobacco Use Types Packs/Day Years Used Date Smoking Tobacco: Never Smokeless Tobacco: Never Comments: none Alcohol Use Standard Drinks/Week Comments Yes 4 (1 standard drink = 0.6 oz pure alcoho l) Sex Assigned at Date Recorded Female 04/30/2021 5:46 PM CDT Job Start Date Occupation Industry Not on file Not on file Not on file Obstetrics History Para Term AB IAB SAB Ectopic Multiple Living Live Births 8 3 Date Outcome GA Total Labor/2nd/3rd Weight Sex Delivery Anes PTL Laura A 1 A5 Name Clin Labor Para Para Para Last Filed Vital Signs Not on file Plan of Treatment Health Maintenance Due Date Last Done Comments COVID-19 Vaccination (2 - Pfizer series) 06/10/2021 021 Results Not on fileafter 03/27/2022 Insurance Payer Benefit Plan Subscriber ID Effective Phone Address Typ e / Group Dates MEDICARE MEDICARE PART [id number] 2006-Pres [phone] [facility] Medicare A AND B ent [id number] [place] [address] [employer] [employer] [id number] 2020-Pres [address] [employer] ONLY ent [id number] [place] [address] Care Teams Consumer Experience Consultant Relationship Specialty Start Date End Date Verna Carpio PCP - External Obstetrics/Gynecology 04/30/21 MD Angelica Referring [address] [facility] [address] [place] [address] Isreal Vazquez MD PCP - General Gynecological Oncology 04/30/21 [address] [facility] [address] [place] [address] Timmy Abraham PCP - External Primary Internal Medicine 04/30/21 MD Eduardo Care Provider [facility] [address] [facility] [address] [place] [address] Johann Altamirano PCP - External Follow Cardiology 04/30/21 MD Roberto Up A [address] [facility] [place] [place] [address]
--- OUTSIDE RECORDS SUMMARY | 2023-03-27 12:56 | XMS REPORT | Continuity of Care Document ---
:1950 Author Organization [facility] t Address [address] [facility] [address] [place] [address] Care Team Providers Name Role Phone [phone] Primary Care Physician Unavailable SYSTEM, PROVIDER NOT IN Attending Clinician Unavailable [email or web address] Attending Clinician Unavailable ALEXEY WEINER Attending Clinician Unavailable Nurse, Adc Pob Immunization Attending Clinician Unavailable Alexey Weiner DO Attending Clinician AMELIA CARABALLO Attending Clinician Unavailable BRITT LEMUS Attending Clinician Unavailable ELAINE PRIEST Attending Clinician Unavailable DESMOND GREGORY Attending Clinician Unavailable Therapy, Adc Covid Infusion Attending Clinician Unavailable Jacob Heath MD Attending Clinician JACOB HEATH Attending Clinician Unavailable Lab, Adc Fam Pob I Attending Clinician Unavailable Purnima Foss Attending Clinician PURNIMA WILSON Attending Clinician Unavailable Doctor Unassigned, [place] Attending Clinician Unavailable Jaxon Corley PA-C Attending Clinician JAXON CORLEY Attending Clinician Unavailable [email or web address] Admitting Clinician Unavailable BRITT LEMUS Admitting Clinician Unavailable Payers Payer Name Policy Type Policy Number Effective Date Expiration Date S julisa MEDICARE PART A \T\ [id number] 2006 B 00:00:00 [facility] [id number] 2020 MEDICARE SUPPLEMENT 00:00:00 MEDICARE PART A AND [id number] 2006 B 00:00:00 [employer]-SECONDARY ONLY [id number] 2020 00:00:00 Problems Condition Condition Condition Status Onset Resolution Last Treating Co mments Source Name Details Category Date Date Treatment Clinician Date Complex Complex Disease Active Overview: Univ ers cyst of cyst of 05-11 Formattin ity o f right right 00:00: g of this [place] ovary ovary 00 note might be Anderso different n from the Cancer original. Center Added automatic ally from request for surgery [id number] Hypertensi Hypertensi Disease Active Overview : Univers on on 05-11 Formattin ity of 00:00: g of this 00 note might be Anderso different n from the Cancer original. Center Added automatic ally from request for surgery [id number] Hyperlipid Hyperlipid Disease Active Overview : Univers emia emia 05-11 Formattin ity of 00:00: g of this 00 note might be Anderso different n from the Cancer original. Center Added automatic ally from request for surgery [id number] Myocardial Myocardial Disease Active Overview : Univers infarction infarction 05-11 Formattin ity of 00:00: g of this 00 note might be Anderso different n from the Cancer original. Center Added automatic ally from request for surgery [id number] Anxiety Anxiety Disease Active Univers - ity of 00:00: [place] 00 MD [facility] Chronic Chronic Disease Active Univers depression depression 02-06 it y of 00:00: [place] 00 MD [facility] Seasonal Seasonal Disease Active Unive rs allergy allergy 02-06 ity of 00:00: [place] 00 MD [facility] Allergies, Adverse Reactions, Alerts Allergy Allergy Status Severity Reaction(s) Onset Inactive Treating Comm ents Source Name Type Date Date Clinician NO KNOWN Drug Active Univers ALLERGIE Class ity of S [facility] Family History Family Member Diagnosis Comments Start Date Stop Date Source Maternal grandfather Colon cancer Un [facility]versity [facility] Paternal aunt Breast cancer [facility]i ty [facility] Maternal aunt Breast cancer Universi ty [facility] Maternal aunt Lung cancer [facility] Social History Social Habit Start Date Stop Date Quantity Comments Source Exposure to Not sure [facility]-CoV-2 [facility] (event) Branch Alcohol intake 2021-07-26 2021-07-26 Current drinker Unive rsity of 00:00:00 00:00:00 of alcohol [place] MD Cardona [facility] (finding) [facility] Tobacco use and 2021-05-10 2021-05-10 Smokeless tobacco Un iversity of exposure 00:00:00 00:00:00 non-user [place] MD [facility] Tobacco Comment 2021-05-10 2021-05-10 none Universit y of 00:00:00 00:00:00 [place] MD Cardona [facility] Sex Ass[birth year] F Universit y of 00:00:00 00:00:00 [place] Brendan [facility] Smoking Status Start Date Stop Date Source Unknown if ever smoked [facility] Never smoked tobacco [facility] Medications Ordered Filled Start Stop Current Ordering Indication Dosage Frequency Signature Comments Components Source Medication Medication Date Date Medication? Clinician (SIG) Name Name ibuprofen Yes 200mg Take 200 Uni vers (ADVIL,MOTR 4-01 mg by ity of [place]) 200 mg 02:23: mouth [place] tablet 11 every 8 (eight) Isaiaho hours as n needed. [facility] levothyroxi Yes Take by Uni vers ne 50 mcg 4-01 mouth ity of cap 02:23: daily. [place] Charles cantrell [facility] enalapril Yes 10mg 10 mg Univers (VASOTEC) 5 4-01 twice ity of mg tablet 02:23: daily. [place] Charles cantrell [facility] DULoxetine Yes twice Univer s (CYMBALTA) 4-01 daily. ity of 60 mg 02:23: [place] reina 10 MD Roopa cantrell [facility] simvastatin Yes 80mg Take 80 mg Univers (ZOCOR) 80 4-01 by mouth ity o f mg tablet 02:23: at [place] 10 bedtime. MD [facility] cant[facility] metFORMIN Yes 500mg Take 500 Uni vers (GLUCOPHAGE 4-01 mg by ity of ) 500 mg 02:23: mouth 2 [place] tablet 10 (two) MD times a Anderso day with n meals. Cancer Center diclofenac Yes as needed. U nivers sodium 1-08 ity of (VOLTAREN) 00:00: [place] 50 MG EC 00 MD tablet Anderso n [facility] estradiol 2020-08 Yes as needed. Un dawson (ESTRACE) 2-30 ity of 0.1 mg/g 00:00: [place] (0.01%) 00 vaginal Anderso cream n [facility] oxyCODONE 2020-08 Yes Complex 5mg Take 1 Uni vers (Roxicodone 0-05 cyst of tablet (5 ity of ) 5 mg 00:00: right ovary mg[place] immediate 00 mouth MD release every 4 Anderso tablet (four) n hours as Cancer needed for Center moderate pain. acetaminoph 2020-08 Yes Complex 1000mg Take 2 Univers en (Tylenol 0-05 cyst of tablets it y of Extra 00:00: right ovary (1,000 mg) [place] Strength) 00 by mouth 500 mg every 6 Anderso tablet (six) n hours. Cancer Center senna-docus 2020-08 Yes Complex 1{tbl} Take 1 Univers ate 0-05 cyst of tablet by ity of (SENOKOT-S) 00:00: right ovary mouth [place] 8.6 mg-50 00 twice MD mg tablet daily. Andar n [facility] ibuprofen 2020-08 Yes Complex 800mg Take 1 Un dawson (ADVIL,MOTR 0-05 cyst of tablet ity of [place]) 800 mg 00:00: right ovary (800 mg) [place] tablet 00 by mouth MD every 8 Anderso (eight) n hours. Cancer [place] sulfamethox Yes Acute 1{tbl} Take 1 U nivers azole-trime 9-24 cystitis tablet by ity of thoprim 00:00: without mouth [place] (BACTRIM 00 hematuria, twice DS) 800 not daily. Anderso mg-160 mg otherwise n per tablet specified [facility] 2020- No [id number] Univers b (EUA) 700 01-0518 ity of mg, 22:15: 22:23 [place] etesevimab 00 :00 Medical (EUA) 1,400 Branch mg in NaCl 0.9% (NS) infusion bamlanivima 2020- No [id number] IV Univers b (EUA) 700 01-0518 Infusion, it y of mg, 22:15: 22:23 ONCE, Tue [place] etesevimab 00 :00 01/05/21 at Med ical (EUA) 1,400 1715, For Bra nch mg in NaCl 1 0.9% (NS) dose
Ad infusion electrical continuity inspector the entire infusion solution in the bag via pump or gravity; Administer as an IV infusion via pump or gravity over at least 60 minutes through an intravenou s line containing a sterile, in-line or add-on 0.2-micron polyethers ulfone (PES) filter.&nb sp; S tability: 24 hours refrigerat ed; 7 hours room temperatur e
buPROPion 2019-08 Yes twice Univers (WELLBUTRIN 1-16 daily. ity of ) 75 mg 00:00: [place] tablet 00 MD [facility] clopidogrel 2019-08 Yes daily. Univ ers (PLAVIX) 75 1-16 ity of mg tablet 00:00: [place] 00 MD [facility] Immunizations Ordered Filled Immunization Date Status Comments [facility] e Immunization Name Name SARS-COV-2 COVID-19 2021-10-07 Completed Unive rsity of PFIZER ELENI-SUCROSE 00:00:00 [facility] VACCINE (BRANDT TOP) Branch SARS-COV-2 COVID-19 2021-04-15 Completed Unive rsity of PFIZER VACCINE 00:00:00 [place] [facility] Branch SARS-COV-2 COVID-19 2021-04-15 Completed Unive rsity of PFIZER VACCINE 00:00:00 [facility] Vital Signs Vital Name Observation Time Observation Value Comments Source Systolic blood 2021-01-05 23:00:00 114 mm[Hg] Univer sity of pressure [facility] Diastolic blood 2021-01-05 23:00:00 67 mm[Hg] [facility] [place] [facility] rs[facility] pressure [facility] Heart rate 2021-01-05 23:00:00 78 /min [facility] Respiratory rate 2021-01-05 23:00:00 18 /min [facility] Oxygen saturation in 2021-01-05 23:00:00 98 /[facility] Arterial blood by [facility] Pulse oximetry Branch Body temperature 2021-01-05 22:25:00 37.11 Lizett [facility] [place] [facility] Body height 2021-01-05 21:13:00 154.9 cm [facility] Body weight 2021-01-05 21:13:00 113.399 kg [facility] BMI 2021-01-05 21:13:00 47.24 kg/m2 [facility] Procedures Procedure Date / Time Performed Performing Clinician Sourc e SARS-COV-2 COVID-2021-10-07 14:47:53 Doctor Unassigned, No [facility] [place] VACCINE 12 [facility] YRS+,0.3ML,IM (PFIZER - BRANDT TOP) SARS-COV-2 COVID-19 2021-04-15 19:42:48 Doctor Unassigned, No [facility] [place] VACCINE,0.3ML,IM [facility] (PFIZER) ASSIGNMENT OF BENEFITS 2020-12-30 15:10:37 Doctor Unassigned, No [facility] Plan of Care Planned Activity Planned Date Details Comments Source Future Scheduled 2023-01-13 COVID-19 Vaccination Uni [facility] Test 11:42:58 (2 - Pfizer series) MD Cardona [facility] [code = COVID-19 Center Vaccination (2 - Pfizer series)] Encounters Start End Encounter Admission Attending Care Care Encounter Source Date/Time Date/Time Type Type Clinicians Facility Department ID 2021-05-04 Outpatient SYSTEM, OLLIE LEVIN [id number] 10:34:58 PROVIDER Isaiah cantrell 2023-03-23 2023-03-23 Outpatient [id number] PRIV PRIV [id number] [facility] 00:00:00 00:00:00 diradha_S [id number] Medic al 2021-10-07 2021-10-07 Outpatient R HUSAM [facility] [id number] Univers 08:30:00 08:30:00 ALEXEY [facility] 2021-10-07 2021-10-07 Imm/Inj Nurse, Adc Pob Immunization [facility] [id number] Univers 08:30:00 08:30:00 Visit Alexey Weiner [place] [id number] .10 [facility] [id number] Deangelodora mcginnis [facility] [phone] Mn dical [address] 2021-09-14 2021-09-14 Outpatient OVIDIO CARABALLO, MDA MDA [id number] 15:37:22 23:59:00 AMELIA cantrell 2021-09-14 2021-09-14 Outpatient OVIDIO CARABALLO, MDA MDA [id number] MD 13:02:50 14:41:45 AMELIA cantrell 2021-07-26 2021-07-26 Outpatient OVIDIO LEMUS, MDA MDA [id number] 09:42:03 09:42:03 BRITT cantrell 2021-06-28 2021-06-28 Outpatient OVIDIO LEMUS, MDA MDA [id number] 15:08:24 15:08:24 BRITT cantrell 2021-06-07 2021-06-07 Outpatient OVIDIO LEMUS, MDA MDA [id number] MD 14:01:34 14:55:50 BRITT cantrell 2021-05-25 2021-05-25 Inpatient OVIDIO LEMUS MDA [facility]ACATION GUIDE [id number] 05:03:00 14:31:00 BRITT Cardona so óscar 2021-05-21 2021-05-21 Outpatient EL MDA MDA [id number] 12:19:24 23:59:00 Isaiah o óscar 2021-05-21 2021-05-21 Outpatient EL ELAINE PRIEST MDA MDA [id number] 14:30:42 14:30:42 Isaiah o óscar 2021-05-21 2021-05-21 Outpatient EL MDA MDA [id number] MD 11:08:33 11:08:33 Isaiah o óscar 2021-05-21 2021-05-21 Outpatient EL MDA MDA [id number] 10:51:27 10:51:27 Isaiaherlin cantrell 2021-05-18 2021-05-18 Outpatient EL MDA MDA [id number] 12:30:00 23:59:00 Isaiah jordyn cantrell 2021-05-18 2021-05-18 Outpatient EL MDA MDA [id number] MD 12:29:39 15:41:13 Isaiaherlin cantrell 2021-05-18 2021-05-18 Outpatient EL GREGORYDESMOND MDA MDA [id number] 12:30:07 12:30:07 Isaiaherlin cantrell 2021-05-13 2021-05-13 Outpatient Shaneka HUSAM [facility] [id number] Univers 16:30:00 16:30:00 [facility] 2021-05-10 2021-05-10 Outpatient EL MDA MDA [id number] 12:23:58 12:45:58 Isaiah cantrell 2021-05-10 2021-05-10 Outpatient EL MDA MDA [id number] 10:38:51 10:38:51 Isaiah cantrell 2021-05-10 2021-05-10 Outpatient OVIDIO LEMUS MDA MDA [id number] 10:35:39 10:35:39 BRITT cantrell 2021-05-10 2021-05-10 Outpatient OVIDIO LEMUS MDA MDA [id number] 10:28:26 10:28:35 BRITT cantrell 2021-04-15 2021-04-15 Outpatient Shaneka WEINER [facility] [id number] Univers 15:20:00 15:20:00 ALEXEY [facility] 2021-04-15 2021-04-15 Imm/Inj Nurse, Adc Pob Immunization [facility] [id number] Univers 14:32:08 14:32:30 Visit Alexey Weiner [id number] .10 [facility] [id number] Jimmy Holly [phone] [place] dic[address] 2021-01-05 2021-01-05 Nurse Therapy, Adc Covid Infusion [facility] [id number] Univers 16:09:41 16:39:41 Visit Jacob Heath [id number] ity of [place] 4[place]2.7.2.686 [place] [id number] [place] [address] [place] 2021-01-05 2021-01-05 Outpatient R DONTE [facility] [id number] Univers 16:00:00 16:00:00 JACOB ity [facility] 2020-12-30 2020-12-30 Laboratory Lab, [facility] 1.2. [id number] Univers 10:11:35 10:31:35 Only StevePurnima [facility] [id number] ity of [place] [id number] Deangelo as Professio [id number] [address] Office [facility] 2020-12-30 2020-12-30 Outpatient R STEVE [facility] [id number] Univers 10:00:00 10:00:00 PURNIMA [facility] 2020-12-30 2020-12-30 Orders Doctor JAXON [id number] Univers 00:00:00 00:00:00 Only Unassigned, RYANN [id number] [facility] [id number] Deangelo as [phone] [address] 2020-12-12 2020-12-12 Laboratory Lab, [facility] 1.2. [id number] Univers 11:15:30 11:35:30 Only Jaxon [facility] [id number] ity of [place] [id number] Deangelo as Professio [phone] Mn dical nal [address] [place] [address] One 2020-12-12 2020-12-12 Outpatient R ANN-MARIE [facility] [id number] Univers 11:20:00 11:20:00 JAXON [facility] 2020-12-12 2020-12-12 Letter Doctor JAXON [id number] Univers 00:00:00 00:00:00 (Out) Unassigned, RYANN [id number] ity of [place] [facility] [id number] Deangelo as [phone] [place] [address] Branch 2020-12-12 2020-12-12 Letter Doctor JAXON [id number] 00:00:00 00:00:00 (Out) Unassigned, RYANN [id number] ity of [place] [facility] [id number] Deangelo as [phone] [place] [address] Branch Results This patient has no known results.
--- NOTE | 2023-03-27 13:29 | RAD REPORT ---
EXAM DESCRIPTION: CT - Ct Stroke Brain Wo Cont - 03/27/2023 1:16 pm CLINICAL HISTORY: Blurred vision COMPARISON: 2017 TECHNIQUE: Computed axial tomography of the head was obtained. All CT scans are performed using dose optimization technique as appropriate and may include automated exposure control or mA/KV adjustment according to patient size. FINDINGS: An intracranial bleed is not seen . The ventricles are normal in caliber. No extra-axial fluid collection is noted. No significant hypodensity within the brain Fluid within the sinuses/ mastoids is not seen. IMPRESSION: No acute intracranial abnormality is seen. If patient's symptoms persist MRI of the bra in would be recommended Dr Land of the emergency room was notified at 1:24 p.m. March 27, 2023
[2023-03-27 13:56] LABS: Protime INR 1.01
[2023-03-27 14:03] LABS: Potassium 4.2 mEq/L (3.5-5.1); Troponin High Sensitivity 4.3 pg/mL (<58.9)
--- NOTE | 2023-03-27 14:35 | RAD REPORT ---
EXAM DESCRIPTION: Nanci Single View03/27/2023 2:26 pm CLINICAL HISTORY: Dizziness COMPARISON: 2017 FINDINGS: The lungs appear clear of acute infiltrate. The heart is normal size IMPRESSION: No acute abnormalities displayed
[2023-03-27 14:52] LABS: Absolute Lymphocytes (CBC) 3.5 K/uL (0.7-4.9); Hematocrit 41.7 % (36.0-45.0); Lymphocytes % 33.7 % (15.3-44.8); MCV 92.3 fL (80-100); MPV 8.2 fL (7.6-11.3); Platelets 281 thou/uL (152-406); RBC Red Blood Cell Count 4.51 M/uL (3.86-4.86)
--- NOTE | 2023-03-27 15:21 | RAD REPORT ---
EXAM DESCRIPTION: MRI - Brain Wo Cont - 03/27/2023 3:07 pm CLINICAL HISTORY: Dizziness and blurred vision COMPARISON: Head CT March 27 2023 TECHNIQUE: Axial, sagittal, and coronal magnetic resonance images of the brain were obtained. FINDINGS: Mild signal within periventricular, deep and subcortical white matter probably ischemic ch anges secondary to small vessel disease Diffusion-weighted/ADC mapping does not reveal evidence of acute infarction. The ventricles are normal caliber. An extra-axial fluid collection is not noted. Fluid within the sinuses/mastoids is not seen IMPRESSION: No acute intracranial abnormality noted
[2023-03-27] MEDS ORDERED: NA CHLORIDE 0.9% 1,000 ML ONE (15:28)
--- NOTE | 2023-03-27 17:01 | ER ---
Nurse's Notes [facility] Gerald Name: Laney Espitia Age: 73 yrs Sex: Female : 1950 Arrival Date: 03/27/2023 Time: 12:52 Bed 3 Private MD: Timmy Abraham Diagnosis: Dizziness and giddiness;Ataxia, unspecified Presentation: 03/27 13:00 Chief complaint: Patient states: dizzy, weak, blurred vision, some nausea since this eh3 morning, h/a in back of head 9/10 pain. Ebola Screen: No symptoms or risks identified at this time. 13:00 Method Of Arrival: Wheelchair eh3 13:01 Coronavirus screen: Vaccine status: Patient reports receiving the 2nd dose of the covid eh3 vaccine. No acute neurological deficit is noted. Initial Sepsis Screen: Does the patient meet any 2 criteria? No. Patient's initial sepsis screen is negative. Does the patient have a suspected source of infection? No. Patient's initial sepsis screen is negative. Risk Assessment: Do you want to hurt yourself or someone else? Patient reports no desire to harm self or others. Onset of symptoms was March 27, 2023. 13:01 Acuity: PIPPA 2 eh3 Triage Assessment: 13:01 The onset of the patients symptoms was March 27, 2023 at 04:30. General: Appears in no eh3 apparent distress. uncomfortable, Behavior is calm, cooperative, appropriate for age. Pain: Complains of pain in back of head. Neuro: Level of Consciousness is awake, alert, obeys commands, Oriented to person, place, time, situation, Reports blurred vision dizziness, headache occipital area, weakness. Cardiovascular: Capillary refill < 3 seconds Patient's skin is warm and dry. Respiratory: Airway is patent Respiratory effort is even, unlabored, Respiratory pattern is regular, symmetrical. GI: Reports nausea. Stroke Activation: Physician: Stroke Attending; Name: ; Notified At: ; Arrived At: Physician: Chief Stroke Resident; Name: ; Notified At: ; Arrived At: Physician: Stroke Resident; Name: ; Notified At: ; Arrived At: Physician: ED Attending; Name: Gillespie; Notified At: ; Arrived At: Physician: ED Resident; Name: ; Notified At: ; Arrived At: Historical: - Allergies: 13: NKA; eh3 - Home Meds: 13:25 liothyronine 5 mcg oral tablet daily [Active]; enalapril maleate 5 mg Oral tablet 2 iw times per day [Active]; Cymbalta 60 mg oral capsule,delayed release (e.c.) 2 times per day [Active]; aripiprazole 2 mg oral tablet twice a day [Active]; memantine 10 mg oral tablet 2 times per day [Active]; progesterone micronized 200 mg oral capsule daily [Active]; Plavix 75 mg Oral tablet daily [Active]; topiramate 50 mg oral tablet daily [Active]; simvastatin 20 mg Oral tablet daily [Active]; - PMHx: 13:01 Depression; High Cholesterol; Hypertension; Hypothyroidism; Myocardial infarction; eh3 stroke; - Immunization history:: Adult Immunizations up to date. - Social history:: Smoking status: Patient reports the use of cigarette tobacco products, Patient uses alcohol, occasionally. Screenin:24 [facility] ED Fall Risk Assessment (Adult) History of falling in the last 3 months, iw including since admission Score/Fall Risk Level 0 - 2 = Low Risk. Abuse screen: Denies threats or abuse. Denies injuries from another. Nutritional screening: No deficits noted. Tuberculosis screening: No symptoms or risk factors identified. Assessment: 14:24 Reassessment: Patient appears in no apparent distress at this time. Patient and/or iw family updated on plan of care and expected duration. Pain level reassessed. Patient is alert, oriented x 3, equal unlabored respirations, skin warm/dry/pink. 15:52 Reassessment: Patient appears in no apparent distress at this time. Patient and/or iw family updated on plan of care and expected duration. Pain level reassessed. Patient is alert, oriented x 3, equal unlabored respirations, skin warm/dry/pink. new iv inserted to LAC, CT notified. Vital Signs: 13:01 BP 95 / 65; Pulse 80; Resp 18; Temp 98.4; Pulse Ox 100% ; Weight 90.72 kg; Height 5 ft. 3 1 in. ; 13:01 Body Mass Index 37.79 (90.72 kg, 154.94 cm) [facility] NIH Stroke Scale Scores: 13:24 NIHSS Score: 2 ms3 ED Course: 12:53 Patient arrived in ED. mr 12:53 Christopher Gillespie DO is Attending Physician. ms3 12:53 Timmy Abraham MD is Private Physician. mr 13:01 Arm band placed on. eh3 13:06 Triage completed. eh3 13:18 CT Stroke Brain w/o Contrast In Process Unspecified. EDMS 13:24 Sol Jha RN is Primary Nurse. iw 14:24 Inserted saline lock: 20 gauge in right antecubital area, using aseptic technique. iw ,using aseptic technique. inserted by RIA Taylor via US. 14:28 Stroke CXR 1 View In Process Unspecified. EDMS 15:07 Brain Wo Cont In Process Unspecified. EDMS 15:51 Inserted saline lock: 22 gauge in left upper arm, using aseptic technique. iw 17:01 Timmy Abraham MD is Referral Physician. ms3 Administered Medications: 17:04 Drug: Meclizine PO 50 mg Route: PO; iw Outcome: 17:01 Discharge ordered by . ms3 17:26 Patient left the ED. iw NIH Stroke Scale - NIH Stroke Score Date: 03/27/2023 Time: 13:24 Total Score = 2 10. Dysarthria (speech clarity - read or repeat words) - 0(Normal) 11. Extinction and Inattention (visual/tactile/auditory/spatial/personal) - 0(No abnormality) 1a. Level of Consciousness (LOC) - 0(Alert) 1b. Level of Consciousness (LOC) (Month \T\ Age) - 0(Both) 1c. LOC Commands (Open \T\ Closes Eyes/Institutional Aide) - 0(Both) 2. Best Gaze (Lateral Gaze Paresis) - 0(Normal) 3. Visual Field Loss - 0(No visual loss) 4. Facial Palsy - 0(Normal) 5a. Left Arm: Motor (10-second hold) - 0(No drift) 5b. Right Arm: Motor (10-second hold) - 0(No drift) 6a. Left Leg: Motor (5-second hold - always test supine) - 0(No drift) 6b. Right Leg: Motor (5-second hold - always test supine) - 0(No drift) 7. Limb Ataxia (finger/nose \T\ heel/ricketts - test with eyes open) - 2(Present in two limbs) 8. Sensory Loss (pinprick arms/legs/face) - 0(Normal) 9. Best Language: Aphasia (description/naming/reading) - 0(No aphasia) Initials: ms3 Signatures: Dispatcher [employer] Brielle Upton Irene, RN RN Christopher Leger, DO ms3 Jo Rowe RN RN eh3
--- NOTE | 2023-03-27 17:02 | EDPHYS ---
Physician Documentation [facility] Name: Laney Espitia Age: 73 yrs Sex: Female : 1950 Arrival Date: 03/27/2023 Time: 12:52 Bed 3 Private MD: Timmy Abraham ED Physician Christopher Gillespie HPI: 03/27 13:24 This 73 yrs old Female presents to ER via Wheelchair with complaints of Confusion, ms3 Vision Problem, Weakness. 13:24 73-year-old female with past medical history of hyperlipidemia, hypertension, ms3 depression, hypothyroidism, myocardial infarction, CVA presents for dizziness and weakness that began on waking up at 5:30 AM this morning. Patient states after waking she found it difficult to walk and was tripping on herself. Patient states she does have a frontal headache she rates a 9/10. Patient endorses nausea, generalized weakness, fatigue. Patient denies vomiting, chest pain, shortness of breath.. Historical: - Allergies: 13:01 NKA; eh3 - Home Meds: 13:25 liothyronine 5 mcg oral tablet daily [Active]; enalapril maleate 5 mg Oral tablet 2 iw times per day [Active]; Cymbalta 60 mg oral capsule,delayed release (e.c.) 2 times per day [Active]; aripiprazole 2 mg oral tablet twice a day [Active]; memantine 10 mg oral tablet 2 times per day [Active]; progesterone micronized 200 mg oral capsule daily [Active]; Plavix 75 mg Oral tablet daily [Active]; topiramate 50 mg oral tablet daily [Active]; simvastatin 20 mg Oral tablet daily [Active]; - PMHx: 13:01 Depression; High Cholesterol; Hypertension; Hypothyroidism; Myocardial infarction; eh3 stroke; - Immunization history:: Adult Immunizations up to date. - Social history:: Smoking status: Patient reports the use of cigarette tobacco products, Patient uses alcohol, occasionally. ROS: 13:24 Constitutional: Negative for fever, and chills. Neck: Negative for injury, pain, and ms3 swelling, Cardiovascular: Negative for chest pain, and palpitations. Respiratory: Negative for shortness of breath, cough, wheezing, and pleuritic chest pain, Abdomen/GI: Negative for abdominal pain, nausea, vomiting, diarrhea, and constipation, MS/Extremity: Negative for injury and deformity. 13:24 Neuro: Positive for dizziness, headache. 13:24 All other systems are negative. Exam: 13:24 Constitutional: This is a well developed, well nourished patient who is awake, alert, ms3 and in no acute distress. Head/Face: Normocephalic, atraumatic. Neck: Trachea midline, no cervical lymphadenopathy. Supple, full range of motion without nuchal rigidity, or vertebral point tenderness. No Meningismus. Chest/axilla: Normal chest wall appearance and motion. Nontender with no deformity. Cardiovascular: Regular rate and rhythm with a normal S1 and S2. No gallops, murmurs, or rubs. Normal PMI, no JVD. No pulse deficits. Respiratory: Lungs have equal breath sounds bilaterally, clear to auscultation and percussion. No rales, rhonchi or wheezes noted. No increased work of breathing, no retractions or nasal flaring. Abdomen/GI: Soft, non-tender, with normal bowel sounds. No distension or tympany. No guarding or rebound. No evidence of tenderness throughout. Skin: Warm, dry with normal turgor. Normal color with no rashes, no lesions, and no evidence of cellulitis. MS/ Extremity: Pulses equal, no cyanosis. Neurovascular intact. Full, normal range of motion. 13:24 Neuro: Orientation: is normal, to person, place, time \T\ situation. Mentation: is normal, Memory: is normal, Cranial nerves: CN I not tested, CN II- XII are normal as tested, Cerebellar function: dysmetria is noted on both sides, Motor: is normal, Sensation: is normal. 13:34 ECG was reviewed by the Attending Physician. ms3 Vital Signs: 13:01 BP 95 / 65; Pulse 80; Resp 18; Temp 98.4; Pulse Ox 100% ; Weight 90.72 kg; Height 5 ft. 3 1 in. ; 13:01 Body Mass Index 37.79 (90.72 kg, 154.94 cm) [facility] NIH Stroke Scale Scores: 13:24 NIHSS Score: 2 ms3 MDM: 13:16 Patient medically screened. ms3 17:02 Data reviewed: vital signs, nurses notes, and as a result, I will discharge patient. ms3 Management of patient was discussed with the following: Primary Care Provider: Dr Abraham- Patient can follow up in clinic if patient with normal gait.. Independent interpretation of the following test(s) in the Emergency Department EKG: See my EKG interpretation above. Historians other than the Patient: Spouse/Significant Other: Patient's . Counseling: I had a detailed discussion with the patient and/or guardian regarding: the historical points, exam findings, and any diagnostic results supporting the discharge/admit diagnosis, lab results, radiology results, the need for outpatient follow up, to return to the emergency department if symptoms worsen or persist or if there are any questions or concerns that arise at home. ED course: Patient ambulatory in the emergency department without difficulty, alert and oriented x 4, no apparent distress, nontoxic appearing. Patient to follow-up Dr. Abraham in 2 to 3 days. Patient or stands agrees with plan. All questions were answered. Return precautions discussed include worsening symptoms, or any other concerns. 03/27 13:16 Order name: Basic Metabolic Panel; Complete Time: 15:05 ms3 03/27 13:16 Order name: CBC with Diff; Complete Time: 15:05 ms3 03/27 13:16 Order name: High Sensitivity Troponin; Complete Time: 15:05 ms3 03/27 13:16 Order name: Protime (+inr); Complete Time: 15:05 ms3 03/27 13:16 Order name: Ptt, Activated; Complete Time: 15:05 ms3 03/27 13:35 Order name: Glucose, Ancillary Testing; Complete Time: 15:05 EDMS 03/27 13:12 Order name: CT Stroke Brain w/o Contrast; Complete Time: 15:05 iw 03/27 13:16 Order name: Stroke CXR 1 View; Complete Time: 15:05 ms3 03/27 14:39 Order name: Brain Wo Cont; Complete Time: 16:42 EDMS 03/27 13:16 Order name: EKG; Complete Time: 13:17 ms3 03/27 13:16 Order name: Accucheck; Complete Time: 13:24 ms3 03/27 13:16 Order name: Cardiac monitoring; Complete Time: 14:13 ms3 03/27 13:16 Order name: EKG - Nurse/Tech; Complete Time: 13:31 ms3 03/27 13:16 Order name: IV Saline Lock; Complete Time: 14:13 ms3 03/27 13:16 Order name: Labs collected and sent; Complete Time: 14:13 ms3 03/27 13:16 Order name: NPO; Complete Time: 14:13 ms3 03/27 13:16 Order name: O2 Per Protocol; Complete Time: 14:13 ms3 03/27 13:16 Order name: O2 Sat Monitoring; Complete Time: 14:13 ms3 EC:34 Rate is 79 beats/min. Rhythm is regular. QRS [place] is Normal. [place] interval is normal. QRS ms3 interval is normal. QT interval is normal. Clinical impression: Normal ECG. Interpreted by me. Reviewed by me. Administered Medications: 17:04 Drug: Meclizine PO 50 mg Route: PO; iw Disposition Summary: 03/27/23 17:01 Discharge Ordered Location: Home ms3 Condition: Stable ms3 Diagnosis - Dizziness and giddiness ms3 - Ataxia, unspecified ms3 Followup: ms3 - With: Timmy Abraham MD - When: 2 - 3 days - Reason: Recheck today's complaints Discharge Instructions: - Discharge Summary Sheet ms3 - Dizziness ms3 - Ataxia ms3 Forms: - Medication Reconciliation Form ms3 - Thank You Letter ms3 - Antibiotic Education ms3 - Prescription Opioid Use ms3 - Patient Portal Instructions ms3 Prescriptions: - Meclizine 25 mg Oral Tablet - take 1 tablet by ORAL route every 8 hours As needed; 30 tablet; Refills: 0, ms3 Product Selection Permitted NIH Stroke Scale - NIH Stroke Score Date: 03/27/2023 Time: 13:24 Total Score = 2 10. Dysarthria (speech clarity - read or repeat words) - 0(Normal) 11. Extinction and Inattention (visual/tactile/auditory/spatial/personal) - 0(No abnormality) 1a. Level of Consciousness (LOC) - 0(Alert) 1b. Level of Consciousness (LOC) (Month \T\ Age) - 0(Both) 1c. LOC Commands (Open \T\ Closes Eyes/Marketing Communications Coordinator) - 0(Both) 2. Best Gaze (Lateral Gaze Paresis) - 0(Normal) 3. Visual Field Loss - 0(No visual loss) 4. Facial Palsy - 0(Normal) 5a. Left Arm: Motor (10-second hold) - 0(No drift) 5b. Right Arm: Motor (10-second hold) - 0(No drift) 6a. Left Leg: Motor (5-second hold - always test supine) - 0(No drift) 6b. Right Leg: Motor (5-second hold - always test supine) - 0(No drift) 7. Limb Ataxia (finger/nose \T\ heel/ricketts - test with eyes open) - 2(Present in two limbs) 8. Sensory Loss (pinprick arms/legs/face) - 0(Normal) 9. Best Language: Aphasia (description/naming/reading) - 0(No aphasia) Initials: ms3 Signatures: Dispatcher [employer] EDMS Sol Jha, RIA ROLLINS iw Christopher Gillespie DO DO ms3 Jo Rowe RN RN eh3 Corrections: (The following items were deleted from the chart) 14:39 13:34 MR STROKE PROTOCOL+MRI.RAD.BRZ ordered. EDMS EDMS 17:21 13:33 Head Angio+CT.RAD.BRZ ordered. EDMS EDMS 17:22 13:33 Neck Angio+CT.RAD.BRZ ordered. EDMS EDMS
[2023-03-27] MEDS ORDERED: MECLIZINE HCL 12.5 MG TAB ONE (17:12)
[2023-03-27 17:58] VITALS: BP 95/65; TEMP 98.4; O2SAT 100
--- NOTE | 2023-03-29 18:16 | EKG ---
Test Date: 2023-03-27 Test Time: 13:25:43 Investment Officer: DAVID MEASUREMENT RESULTS: Intervals: Rate: 79 DC: 168 QRSD: 80 QT: 388 QTc: 444 [place]: P: 67 DC: 168 QRS: 80 T: 63 INTERPRETIVE STATEMENTS: Normal sinus rhythm Low voltage QRS Borderline ECG Compared to ECG 03/20/2018 10:26:41 Myocardial infarct finding no longer present Electronically Signed On 03-29-23 18:12:21 CDT by Zach Desir
== END 2023-03-27 17:26 | disposition home or self-care (01) ==
LOC: ER 12:52
DX: R27.0 Ataxia, unspecified (principal); R51.9 Headache, unspecified; I10 Essential (primary) hypertension; I25.2 Old myocardial infarction; R53.1 Weakness; E03.9 Hypothyroidism, unspecified; Z86.73 Personal history of transient ischemic attack (TIA), and cerebral infarction without residual deficits; Z72.0 Tobacco use
CPT/HCPCS: 93005; 85025; 80048; 36415; 85610; 82947; 85730; 84484; 70450; 71045; 70551; 99283; J8597; J7030

== ENCOUNTER 2024-07-04 05:56 | Day surgery (SDC) | payer OTHER, MEDICARE ==
[2024-07-03 16:26] LABS: Absolute Lymphocytes (CBC) 2.9 K/uL (0.7-4.9); Absolute Monocytes 1.3 K/uL (0.1-1.3); Absolute Neutrophil 10.8 K/uL (1.8-8.0); Basophils % 0.2 % (0-1.3); Eosinophils % 0.2 % (0-4.4); Hematocrit 39.7 % (36.0-45.0); Hemoglobin 12.6 g/dL (12.0-15.0); Lymphocytes % 19.1 % (15.3-44.8); MCH 29.3 pg (27.0-35.0); MCHC 31.6 g/dL (32.0-36.0); MCV 92.8 fL (80-100); MPV 8.8 fL (7.6-11.3); Monocytes % 8.8 % (3.3-12.3); Neutrophils % 71.7 % (41.7-73.7); Platelets 277 thou/uL (152-406); RBC Red Blood Cell Count 4.28 M/uL (3.86-4.86); Red Cell Distribution Width 14.3 % (12.1-15.2)
[2024-07-03 16:31] LABS: PT Prothrombin Time 11.6 SECONDS (9.4-12.5); PTT, Activated Partial Thromb 31.6 SECONDS (24.3-36.9); Protime INR 1.04
[2024-07-04] MEDS: Ringers Lactate 1,000 ML IV ONE (06:34)
[2024-07-04] MEDS ORDERED: ROCURONIUM 50 MG/5 ML VIAL IV ONE (06:38)
[2024-07-04] MEDS ORDERED: LIDOCAINE 1% MPF 5 ML VIAL ONE (06:38)
[2024-07-04] MEDS ORDERED: propofoL 200 MG/20 ML VIAL IV ONE (06:38)
[2024-07-04] MEDS ORDERED: FENTANYL CITR 100 MCG/2 ML ONE (06:38)
[2024-07-04] MEDS ORDERED: ONDANSETRON 4 MG/2 ML VIAL ONE (06:38)
[2024-07-04] MEDS ORDERED: MIDAZOLAM HCL 2 MG/2 ML INJ ONE (06:38)
[2024-07-04] MEDS ORDERED: EPHEDRINE SULF 50 MG/ML VIAL ONE (07:33)
[2024-07-04] MEDS: CEFAZOLIN SODIUM 2 GM/VIAL ONE (07:35)
[2024-07-04] MEDS: CEFAZOLIN SODIUM 1 GM/VIAL ONE (07:35)
[2024-07-04] MEDS: LIDOCAINE HCL/EPINEPHRINE 20 ML MDV ONE (07:47)
[2024-07-04 09:15] VITALS: O2SAT 100
[2024-07-04 09:38] VITALS: BP 110/58; TEMP 97.2
== END 2024-07-04 10:16 | disposition home or self-care (01) ==
LOC: OR 05:56
PROVIDERS: ATTEND Obstetrics & Gynecology
PROC: 0JH73BZ Insertion of Single Array Stimulator Generator into Back Subcutaneous Tissue and Fascia, Percutaneous Approach (ICD-10-PCS; 2024-07-04)
PROC: 01HY3MZ Insertion of Neurostimulator Lead into Peripheral Nerve, Percutaneous Approach (ICD-10-PCS; principal; 2024-07-04 07:00)
DX: N39.41 Urge incontinence (principal); N39.3 Stress incontinence (female) (male); N32.81 Overactive bladder; N81.84 Pelvic muscle wasting; I25.10 Atherosclerotic heart disease of native coronary artery without angina pectoris
CPT/HCPCS: 85025; 80048; 36415; 85610; 85730; 64561; 64590; J2704; J2003; J2250; J3010; J2405; J7120; J0690; C1778; C1767; 76000